=== PATIENT | male | born 1930 | race Caucasian/White ===

== ENCOUNTER 2017-05-28 18:28 | Inpatient (IN) | payer MEDICARE, BC ==
[~2017-05-28] VITALS: Ht 172.7 cm; Wt 83.5 kg
[~2017-05-28 18:28] MED LIST: AMIT10TA PO; AMLO10TA2 PO; ATEN50TA PO; CLON2TAB16 PO; DOXE10CA PO; IBUP1TAB12 PO; LORA1TAB PO; OMEP20CA9 PO; OXYC-328 PO; OXYC1TAB9 PO; SOMNAPURE; TAMS0.4C97 PO; TRAZ50TA15 PO; ZALE10CA44 PO
[2017-05-28] MEDS ORDERED: VANCOMYCIN PER PHARMACY MC PRN (19:15)
[2017-05-28] MEDS ORDERED: levOFLOXacin PER PHARMACY. MC PRN (19:15)
[2017-05-28] MEDS ORDERED: PIP/TAZO PER PHARMACY MC PRN (19:15)
[2017-05-28 19:21] LABS: BASO # 0.1 x10^3/uL (0.0-0.2); BASO % 1 % (0-3); EOS % 3 % (0-3); HEMATOCRIT 37.7 % (39.0-53.0); HEMOGLOBIN 12.9 g/dL (13.0-17.5); LYMPH % 12 % (24-48); MEAN CORPUSCULAR HEMOGLOBIN 33 pg (25-35); MEAN CORPUSCULAR HGB CONC 34 g/dL (31-37); MEAN CORPUSCULAR VOLUME 95 fL (79-100); MONO % 9 % (0-9); NEUT % 74 % (31-73); PLATELET COUNT 316 x10^3/uL (140-400); RED BLOOD COUNT 3.95 x10^6/uL (4.30-5.70); RED CELL DISTRIBUTION WIDTH 14.8 % (11.5-14.5); WHITE BLOOD COUNT 8.4 x10^3/uL (4.0-11.0)
[2017-05-28 19:37] LABS: ALBUMIN 3.3 g/dL (3.4-5.0); ALBUMIN/GLOBULIN RATIO 0.7 (1.0-1.7); CREATININE 2.1 mg/dL (0.7-1.3); MAGNESIUM 2.1 mg/dL (1.8-2.4); POTASSIUM 3.9 mmol/L (3.5-5.1); TOTAL BILIRUBIN 0.6 mg/dL (0.2-1.0); TOTAL PROTEIN 7.8 g/dL (6.4-8.2)
[2017-05-28 19:42] LABS: PROTHROMBIN TIME PATIENT 12.8 SEC (11.7-14.0)
[2017-05-28 19:53] LABS: CALCIUM 12.1 mg/dL (8.5-10.1)
--- NOTE | 2017-05-28 21:35 | PHYS DOC ---
Past Medical History Past Medical History: GERD, Hypertension, Renal Failure, Other Additional Past Medical Histor: chronic pain Past Surgical History: Appendectomy, Tonsillectomy, Other Additional Past Surgical Histo: back,finger Alcohol Use: None Drug Use: None Adult General Chief Complaint Chief Complaint: SHORTNESS OF BREATH HPI HPI Patient is a 87 year old male who presents with shortness of breath. The patient reports at least 1 week history of intermittent dyspnea which occurs randomly including while at rest. States it seems worse at night when he tries to lie flat, feels that he can't breathe at all. He reports chronic left lower extremity pain & possibly some mild swelling. Reports occasional dry cough. Denies fevers/chills, chest pain, nausea/vomiting, diaphoresis. He denies previous history of similar symptoms, denies CHF, COPD, CAD, cardiac stents. Recent admission here for acute appendicitis & acute renal failure. States his symptoms began shortly after surgery. He denies any abdominal pain at this time. PCP is Dr. Jessica. Review of Systems Review of Systems Constitutional: Denies fever or chills Eyes: Denies change in visual acuity HENT: Denies nasal congestion or sore throat Respiratory: Reports cough & shortness of breath Cardiovascular: Denies chest pain or edema GI: Denies abdominal pain, nausea, vomiting, bloody stools or diarrhea : Denies dysuria or hematuria Musculoskeletal: Denies back pain or joint pain Integument: Denies rash or skin lesions Neurologic: Denies headache, focal weakness or sensory changes Current Medications Current Medications Current Medications Medications (Trade) Dose Ordered Sig/Boom Start Time Stop Time Status Last Admin Dose Admin Levofloxacin/ Dextrose (Levaquin Per Pharmacy) 1 each PRN DAILY PRN 05/28/17 19:15 UNV Lorazepam (Ativan) 0.5 mg 1X ONCE 05/28/17 19:15 05/28/17 19:16 DC 05/28/17 19:21 0.5 MG Piperacillin Sod/ Tazobactam Sod (Zosyn Per Pharmacy) 1 each PRN DAILY PRN 05/28/17 19:15 UNV Vancomycin HCl (Vanco Per Pharmacy) 1 each PRN DAILY PRN 05/28/17 19:15 UNV Allergies Allergies Allergies Coded Allergies Type Severity Reaction Last Updated Verified lisinopril Allergy Intermediate 05/11/17 Yes simvastatin Allergy Intermediate 05/11/17 Yes tramadol Allergy Intermediate 05/11/17 Yes hydrochlorothiazide Adverse Reaction Intermediate 05/11/17 Yes zolpidem Adverse Reaction Intermediate 09/24/13 Yes Physical Exam Physical Exam Constitutional: Well developed, well nourished, no acute distress, non-toxic appearance. HENT: Normocephalic, atraumatic, bilateral external ears normal, oropharynx moist, nose normal. Eyes: conjunctiva normal, no discharge. Neck: supple, no stridor. Cardiovascular: RRR, no murmurs, no edema. Lungs & Thorax: LCTAB, no wheezing, no respiratory distress. Abdomen: soft, nontender, nondistended. ecchymosis to abdominal wall. Skin: Warm, dry, no erythema, no rash. Back: No tenderness. Extremities: No tenderness, no edema. left calf mild tenderness without obvious asymmetric swelling, no focal knee or ankle tenderness, distal pulses palpable. Neurologic: Alert and oriented X 3, no focal deficits noted. Psychologic: Affect normal, judgement normal, mood normal. Current Patient Data Vital Signs Vital Signs Date Time Temp Pulse Resp B/P (MAP) Pulse Ox O2 Delivery O2 Flow Rate FiO2 05/28/17 19:42 20 168/78 (108) 100 Nasal Cannula 0.5 05/28/17 19:35 64 05/28/17 18:37 98.5 98.5 Lab Values Laboratory Tests Test 05/28/17 18:40 White Blood Count 8.4 x10^3/uL (4.0-11.0) Red Blood Count 3.95 x10^6/uL (4.30-5.70) L Hemoglobin 12.9 g/dL (13.0-17.5) L Hematocrit 37.7 % (39.0-53.0) L Mean Corpuscular Volume 95 fL (79-100) Mean Corpuscular Hemoglobin 33 pg (25-35) Mean Corpuscular Hemoglobin Concent 34 g/dL (31-37) Red Cell Distribution Width 14.8 % (11.5-14.5) H Platelet Count 316 x10^3/uL (140-400) # Neutrophils (%) (Auto) 74 % (31-73) H Lymphocytes (%) (Auto) 12 % (24-48) L Monocytes (%) (Auto) 9 % (0-9) Eosinophils (%) (Auto) 3 % (0-3) Basophils (%) (Auto) 1 % (0-3) Neutrophils # (Auto) 6.2 x10^3uL (1.8-7.7) Lymphocytes # (Auto) 1.0 x10^3/uL (1.0-4.8) Monocytes # (Auto) 0.8 x10^3/uL (0.0-1.1) Eosinophils # (Auto) 0.3 x10^3/uL (0.0-0.7) Basophils # (Auto) 0.1 x10^3/uL (0.0-0.2) Prothrombin Time 12.8 SEC (11.7-14.0) Prothrombin Time INR 1.0 (0.8-1.1) PTT 28 SEC (24-38) Sodium Level 141 mmol/L (136-145) Potassium Level 3.9 mmol/L (3.5-5.1) Chloride Level 103 mmol/L (98-107) Carbon Dioxide Level 33 mmol/L (21-32) H Anion Gap 5 (6-14) L Blood Urea Nitrogen 25 mg/dL (8-26) Creatinine 2.1 mg/dL (0.7-1.3) H Estimated GFR (Cockcroft-Gault) 30.0 BUN/Creatinine Ratio 12 (6-20) Glucose Level 101 mg/dL (70-99) H Calcium Level 12.1 mg/dL (8.5-10.1) *H Magnesium Level 2.1 mg/dL (1.8-2.4) Total Bilirubin 0.6 mg/dL (0.2-1.0) Aspartate Amino Transferase (AST) 29 U/L (15-37) Alanine Aminotransferase (ALT) 24 U/L (16-63) Alkaline Phosphatase 90 U/L (46-116) Troponin I Quantitative < 0.017 ng/mL (0.000-0.055) GU-Rdo-G-Type Natriuretic Peptide 2300 pg/mL (0-449) H Total Protein 7.8 g/dL (6.4-8.2) Albumin 3.3 g/dL (3.4-5.0) L Albumin/Globulin Ratio 0.7 (1.0-1.7) L Laboratory Tests 05/28/17 18:40 Laboratory Tests 05/28/17 18:40 EKG EKG Interpreted by me: Normal sinus rhythm rate 68, intraventricular block, no acute ST elevation, no ectopy, no significant change from prior[] Radiology/Procedures Radiology/Procedures PROCEDURE: VENOUS LOWER EXTREMITY LEFT Left lower extremity venous Doppler: Reason for examination: Left leg pain and swelling. The left lower extremity venous system was evaluated from the common femoral vein distally to the calf veins with grayscale imaging, color-flow imaging and spectral analysis. There appears to be good vascular flow. No deep venous thrombosis is present. There is normal response to compression and augmentation. IMPRESSION: No deep venous thrombosis evident in the left lower extremity. Electronically signed by: Trudy Fritz MD (05/28/2017 11:18 PM) [facility] [place] DICTATED and SIGNED BY: TRUDY FRITZ MD DATE: 05/28/172315 CXR, portable: interpreted by me: no cardiomegaly, no infiltrate, no pneumothorax, no acute process.[] VQ pending at time of admission. Course & Med Decision Making Course & Med Decision Making Pertinent Labs and Imaging studies reviewed. (See chart for details) The patient presents with dyspnea with oxygen saturation in the 70s at triage desk. Oxygen saturation improved to 90s with oxygen 2 L by nasal cannula. Obtained labs, EKG, chest x-ray. Found to have normal chest x-ray, elevated BNP. Venous ultrasound of the left lower extremity negative for DVT, with hypoxia and recent surgery planned to obtain CT angiogram of the chest but this was prevented by low GFR. Ordered V/Q scan which is pending at time of admission. Patient noted to have hypercalcemia, acute on chronic kidney disease. Will give gentle IV fluid hydration as well as low dose lasix; states not previuosly diagnosed with CHF or taking diuretics chronically. Recommended admission to the hospital for further evaluation and treatment. The patient agreed with plan of care. Discussed with Dr. Baker who agrees to admit to inpatient status, consults to Dr. Puckett of cardiology & Dr. Smith of pulmonary. The patient is admitted in guarded condition. [] Dragon Disclaimer Dragon Disclaimer This electronic medical record was generated, in whole or in part, using a voice recognition dictation system. Departure Departure Impression: Primary Impression: Dyspnea Additional Impressions: Acute exacerbation of congestive heart failure Hypercalcemia Acute kidney injury superimposed on chronic kidney disease Disposition: 09 ADMITTED INPATIENT Admitting Physician: Cabrera Baker Condition: GUARDED Problem Qualifiers NILSA DANIELSON MD May 28, 2017 21:35
[2017-05-28] MEDS ORDERED: IV NORMAL SALINE 500ML BAG 500 ML IV ONE (21:45)
[2017-05-28] MEDS ORDERED: ONDANSETRON PF 4 MG/2 ML VIAL. IV PRN (21:45)
[2017-05-28] MEDS ORDERED: ACETAMINOPHEN 325 MG TABLET. PO PRN (21:45)
[2017-05-28] MEDS ORDERED: FUROSEMIDE 20 MG/2 ML VIAL. IVP ONE (22:00)
--- NOTE | 2017-05-28 23:22 | RAD ---
Left lower extremity venous Doppler: Reason for examination: Left leg pain and swelling. The left lower extremity venous system was evaluated from the common femoral vein distally to the calf veins with grayscale imaging, color-flow imaging and spectral analysis. There appears to be good vascular flow. No deep venous thrombosis is present. There is normal response to compression and augmentation. IMPRESSION: No deep venous thrombosis evident in the left lower extremity. Electronically signed by: Trudy Lorenz MD (05/28/2017 11:18 PM) [facility]
[2017-05-29] VITALS (10 sets, daily range): BP systolic 142–199; BP diastolic 64–103
[2017-05-29 04:37] LABS: BASO # 0.1 x10^3/uL (0.0-0.2); BASO % 1 % (0-3); EOS % 3 % (0-3); HEMATOCRIT 36.3 % (39.0-53.0); HEMOGLOBIN 12.9 g/dL (13.0-17.5); LYMPH # 0.8 x10^3/uL (1.0-4.8); LYMPH % 12 % (24-48); MEAN CORPUSCULAR HEMOGLOBIN 33 pg (25-35); MEAN CORPUSCULAR HGB CONC 36 g/dL (31-37); MEAN CORPUSCULAR VOLUME 93 fL (79-100); MONO % 9 % (0-9); NEUT % 76 % (31-73); PLATELET COUNT 294 x10^3/uL (140-400); RED BLOOD COUNT 3.91 x10^6/uL (4.30-5.70); RED CELL DISTRIBUTION WIDTH 14.6 % (11.5-14.5); WHITE BLOOD COUNT 7.1 x10^3/uL (4.0-11.0)
[2017-05-29 04:46] LABS: CALCIUM 11.7 mg/dL (8.5-10.1); CREATININE 1.9 mg/dL (0.7-1.3); GFR 33.6; POTASSIUM 3.9 mmol/L (3.5-5.1)
[2017-05-29] MEDS ORDERED: HYDROcodone/APAP 5/325MG 1 TAB TABLET PO PRN (06:45)
--- NOTE | 2017-05-29 06:57 | EKG ---
[facility] [address] [place] [address] Test Date: 2017-05-28 Test Time: 18:41:44 Pat Name: KARAN GUZMAN Department: Room: 104 1 Gender: M Costumed Character: : 1930 Requested By: NILSA DANIELSON Order Number: [id number] Reading MD: Pito Bray Measurements Intervals [place] Rate: 68 P: 36 LA: 198 QRS: -69 QRSD: 134 T: 7 QT: 402 QTc: 428 Interpretive Statements SINUS RHYTHM ABNORMAL LEFT AXIS DEVIATION RIGHT BUNDLE BRANCH BLOCK QRS(T) CONTOUR ABNORMALITY CONSISTENT WITH INFERIOR INFARCT AGE UNDETERMINED Electronically Signed On 06-20-2017 15:59:33 CDT by Pito Bray
--- NOTE | 2017-05-29 08:29 | RAD ---
Ventilation/perfusion lung scan, 05/29/2017: History: Shortness of breath, possible pulmonary emboli The ventilation study was performed utilizing 24 mCi of xenon-133. Activity in the lungs is mildly heterogeneous. There is mild patchy retention in the lungs on the washout phase Perfusion imaging was performed utilizing 6.6 mCi of technetium 99m MAA. A similar pattern of activity is present in the lungs. No significant unmatched or segmental perfusion defects are seen. IMPRESSION: No VQ findings to suggest pulmonary emboli.
--- NOTE | 2017-05-29 08:59 | RAD ---
Portable chest, 05/28/2017: History: Cough, shortness of breath Comparison is made to a study from 05/14/2017. The heart size and pulmonary vascularity are normal. There is calcific plaquing and tortuosity of the thoracic aorta. Right basilar opacities have cleared. No significant pulmonary consolidation is seen. There is minimal linear scarring or atelectasis in the left base. No significant pleural fluid is evident. IMPRESSION: 1. Right basilar infiltrates and pleural fluid have cleared. 2. No acute abnormality is detected.
[2017-05-29] MEDS ORDERED: ONDANSETRON PF 4 MG/2 ML VIAL. IV PRN (09:15)
[2017-05-29] MEDS ORDERED: ALBUTEROL SULFATE 2.5 MG/3 ML NEBU. NEB PRN (09:15)
[2017-05-29] MEDS ORDERED: LORazepam 1 MG TABLET PO PRN (09:15)
[2017-05-29] MEDS ORDERED: oxyCODONE/APAP 10/325 1 TAB TABLET PO PRN (09:15)
[2017-05-29] MEDS ORDERED: MIRT15TA3 PO (09:17)
[2017-05-29] MEDS ORDERED: ATENOLOL 50 MG TABLET. PO SCH (10:00)
[2017-05-29] MEDS: TAMSULOSIN 0.4 MG CAP.ER.24H. PO SCH (10:18)
[2017-05-29] MEDS: amLODIPine BESYLATE 10 MG TABLET PO SCH (10:18)
[2017-05-29] MEDS: PANTOPRAZOLE 40 MG TABLET.DR. PO SCH (10:18)
--- NOTE | 2017-05-29 10:48 | PDOC1 ---
History and Physical Date of Admission Date of Admission DATE: 05/29/17 TIME: 10:43 Identification/Chief Complaint Chief Complaint soa Problems: Source Source: Caregiver, Chart review, Patient History of Present Illness History of Present Illness 87 y.o male, son involved in care was recently here for lap appy by our GS team but transferred to [facility] bec had urinary retention issues post op/ needed urology service, SOunds like at [facility], morrison was placed and no other urologic intervention, dcd home with morrison., BUt came thru ER last night bec of SOA, leg edema, CHF findings on imaging and BNP elevated., and has had good UO after lasix at ER, NO hx CAD, COPD or CHF known to pt,. SOn not at bedside, BUt does have hx CKD? unknown creat, Creat better 1.9 from 2.1, but hypercalcemia persists, 10 from 11 NO known parathyroids issues at least known to pt. PCP Jaskaran Hilario Past Medical History Cardiovascular: HTN Pulmonary: No pertinent hx CENTRAL NERVOUS SYSTEM: Periperal neuropathy GI: GERD Heme/Onc: No pertinent hx Hepatobiliary: No pertinent hx Psych: No pertinent hx Musculoskeletal: low back pain, Osteoarthritis Infectious disease: No pertinent hx Renal/: Urinary Incontinence, Other Endocrine: No pertinent hx Past Surgical History Past Surgical History: Appendectomy, Cataract Removal, Tonsillectomy, Other Family History Family History: No Significant Social History Smoke: No ALCOHOL: rare Drugs: None Current Problem List Problem List Problems Medical Problems: (1) Acute exacerbation of congestive heart failure Status: Acute (2) Acute kidney injury superimposed on chronic kidney disease Status: Acute (3) Dyspnea Status: Acute (4) Hypercalcemia Status: Acute Problems: Current Medications Current Medications Current Medications Vancomycin HCl (Vanco Per Pharmacy) 1 each PRN DAILY PRN MC SEE COMMENTS; Start 05/28/17 at 19:15; Status UNV Piperacillin Sod/ Tazobactam Sod (Zosyn Per Pharmacy) 1 each PRN DAILY PRN MC SEE COMMENTS; Start 05/28/17 at 19:15; Status UNV Levofloxacin/ Dextrose (Levaquin Per Pharmacy) 1 each PRN DAILY PRN MC SEE COMMENTS; Start 05/28/17 at 19:15; Status UNV Lorazepam (Ativan) 0.5 mg 1X ONCE IV Last administered on 05/28/17t 19:21; Start 05/28/17 at 19:15; Stop 05/28/17 at 19:16; Status DC Ondansetron HCl (Zofran) 4 mg PRN Q8HRS PRN IV NAUSEA/VOMITING; Start 05/28/17 at 21:45; Stop 05/29/17 at 09:08; Status DC Acetaminophen (Tylenol) 650 mg PRN Q4HRS PRN PO FEVER; Start 05/28/17 at 21:45 ; Stop 05/29/17 at 21:44 Furosemide (Lasix) 20 mg 1X ONCE IVP Last administered on 05/28/17 22:00; Start 05/28/17 at 22:00; Stop 05/28/17 at 22:01; Status DC Sodium Chloride 500 ml @ 500 mls/hr 1X ONCE IV Last administered on 21:45; Start 05/28/17 at 21:45; Stop 05/28/17 at 22:44; Status DC Lorazepam (Ativan) 0.5 mg PRN Q4HRS PRN IV ANXIETY / AGITATION Last administered on 05/29/17 06:44; Start 05/29/17 at 06:45 Acetaminophen/ Hydrocodone Bitart (Lortab 5/325) 1 tab PRN Q6HRS PRN PO SEVERE PAIN Last administered on 05/29/17 06:44; Start 05/29/17 at 06:45 Ondansetron HCl (Zofran) 4 mg PRN Q6HRS PRN IV NAUSEA/VOMITING; Start 05/29/17 at 09:15; Stop 05/30/17 at 09:14 Albuterol Sulfate (Ventolin Neb Soln) 2.5 mg PRN Q4HRS PRN NEB SHORTNESS OF BREATH; Start 05/29/17 at 09:15 Amlodipine Besylate (Norvasc) 10 mg DAILY PO Last administered on 05/29/17 10: 18; Start 05/29/17 at 10:00 Atenolol (Tenormin) 50 mg DAILY PO Last administered on 05/29/17 10:17; Start 05/29/17 at 10:00 Doxepin HCl (SINequan) 10 mg QHS PO ; Start 05/29/17 at 21:00 Lorazepam (Ativan) 2 mg PRN QHS PRN PO INSOMNIA; Start 05/29/17 at 09:15 Oxycodone/ Acetaminophen (Percocet 10/325) 1 tab PRN Q4HRS PRN PO PAIN; Start 05/29/17 at 09:15 Tamsulosin HCl (Flomax) 0.4 mg DAILY PO Last administered on 05/29/17 10:18; Start 05/29/17 at 10:00 Pantoprazole Sodium (Protonix) 40 mg DAILYAC PO Last administered on 05/29/17 10:18; Start 05/29/17 at 11:30 Active Scripts Active Flomax (Tamsulosin Hcl) 0.4 Mg Cap.er.24h 0.4 Mg PO DAILY 30 Days Reported Mirtazapine 15 Mg Tablet 0.5 Tab PO QHS Amlodipine Besylate 10 Mg Tablet 10 Mg PO Lorazepam 1 Mg Tablet 2 Mg PO HS PRN Atenolol 50 Mg Tablet 50 Mg PO BID Allergies Allergies: Coded Allergies: lisinopril (Verified Allergy, Intermediate, 05/11/17) simvastatin (Verified Allergy, Intermediate, 05/11/17) WEAKNESS tramadol (Verified Allergy, Intermediate, 05/11/17) "DRIVE ME UP A WALK" hydrochlorothiazide (Verified Adverse Reaction, Intermediate, 05/11/17) "MADED ME HURT IN MY LEGS" zolpidem (Verified Adverse Reaction, Intermediate, 09/24/13) hEADACHE ROS Review of System denies currently 14 pt reviewed with him Physical Exam General: Alert, Oriented X3, Cooperative, No acute distress HEENT: Atraumatic, PERRLA Lungs: Normal air movement, Other (dec BS) Heart: S1S2, RRR, no thrills, no rubs, no gallops, no murmurs Cardiovascular: S1, S2 Abdomen: Normal bowel sounds, Soft, No tenderness, No hepatosplenomegaly, No masses Male Genitals Exam: normal genitalia, normal prostate Rectal Exam: not examined Extremities: No clubbing, No cyanosis, No edema, Normal pulses, No tenderness/ swelling Skin: No rashes, No breakdown, No significant lesion Neuro: Normal gait, Normal speech, Strength at 5/5 X4 ext, Normal tone, Sensation intact, Cranial nerves 3-12 NL, Reflexes 2+ Psych/Mental Status: Mental status NL, Mood NL Vitals Vitals Vital Signs Date Time Temp Pulse Resp B/P (MAP) Pulse Ox O2 Delivery O2 Flow Rate FiO2 05/29/17 10:18 67 155/80 05/29/17 07:30 16 96 Room Air 05/29/17 07:00 98.8 98.8 05/28/17 19:42 0.5 Labs Labs Laboratory Tests Test 05/28/17 18:40 05/29/17 03:34 05/29/17 09:35 White Blood Count 8.4 x10^3/uL (4.0-11.0) 7.1 x10^3/uL (4.0-11.0) Red Blood Count 3.95 x10^6/uL (4.30-5.70) 3.91 x10^6/uL (4.30-5.70) Hemoglobin 12.9 g/dL (13.0-17.5) 12.9 g/dL (13.0-17.5) Hematocrit 37.7 % (39.0-53.0) 36.3 % (39.0-53.0) Mean Corpuscular Volume 95 fL (79-100) 93 fL (79-100) Mean Corpuscular Hemoglobin 33 pg (25-35) 33 pg (25-35) Mean Corpuscular Hemoglobin Concent 34 g/dL (31-37) 36 g/dL (31-37) Red Cell Distribution Width 14.8 % (11.5-14.5) 14.6 % (11.5-14.5) Platelet Count 316 x10^3/uL (140-400) 294 x10^3/uL (140-400) Neutrophils (%) (Auto) 74 % (31-73) 76 % (31-73) Lymphocytes (%) (Auto) 12 % (24-48) 12 % (24-48) Monocytes (%) (Auto) 9 % (0-9) 9 % (0-9) Eosinophils (%) (Auto) 3 % (0-3) 3 % (0-3) Basophils (%) (Auto) 1 % (0-3) 1 % (0-3) Neutrophils # (Auto) 6.2 x10^3uL (1.8-7.7) 5.4 x10^3uL (1.8-7.7) Lymphocytes # (Auto) 1.0 x10^3/uL (1.0-4.8) 0.8 x10^3/uL (1.0-4.8) Monocytes # (Auto) 0.8 x10^3/uL (0.0-1.1) 0.6 x10^3/uL (0.0-1.1) Eosinophils # (Auto) 0.3 x10^3/uL (0.0-0.7) 0.2 x10^3/uL (0.0-0.7) Basophils # (Auto) 0.1 x10^3/uL (0.0-0.2) 0.1 x10^3/uL (0.0-0.2) Prothrombin Time 12.8 SEC (11.7-14.0) Prothromb Time International Ratio 1.0 (0.8-1.1) Activated Partial Thromboplast Time 28 SEC (24-38) Sodium Level 141 mmol/L (136-145) 143 mmol/L (136-145) Potassium Level 3.9 mmol/L (3.5-5.1) 3.9 mmol/L (3.5-5.1) Chloride Level 103 mmol/L (98-107) 105 mmol/L (98-107) Carbon Dioxide Level 33 mmol/L (21-32) 31 mmol/L (21-32) Anion Gap 5 (6-14) 7 (6-14) Blood Urea Nitrogen 25 mg/dL (8-26) 23 mg/dL (8-26) Creatinine 2.1 mg/dL (0.7-1.3) 1.9 mg/dL (0.7-1.3) Estimated GFR (Cockcroft-Gault) 30.0 33.6 BUN/Creatinine Ratio 12 (6-20) Glucose Level 101 mg/dL (70-99) 103 mg/dL (70-99) Calcium Level 12.1 mg/dL (8.5-10.1) 11.7 mg/dL (8.5-10.1) Magnesium Level 2.1 mg/dL (1.8-2.4) Total Bilirubin 0.6 mg/dL (0.2-1.0) Aspartate Amino Transf (AST/SGOT) 29 U/L (15-37) Alanine Aminotransferase (ALT/SGPT) 24 U/L (16-63) Alkaline Phosphatase 90 U/L (46-116) Troponin I Quantitative < 0.017 ng/mL (0.000-0.055) < 0.017 ng/mL (0.000-0.055) < 0.017 ng/mL (0.000-0.055) WZ-Lxs-F-Type Natriuretic Peptide 2300 pg/mL (0-449) Total Protein 7.8 g/dL (6.4-8.2) Albumin 3.3 g/dL (3.4-5.0) Albumin/Globulin Ratio 0.7 (1.0-1.7) Laboratory Tests Test 05/28/17 18:40 05/29/17 03:34 05/29/17 09:35 White Blood Count 8.4 x10^3/uL (4.0-11.0) 7.1 x10^3/uL (4.0-11.0) Red Blood Count 3.95 x10^6/uL (4.30-5.70) 3.91 x10^6/uL (4.30-5.70) Hemoglobin 12.9 g/dL (13.0-17.5) 12.9 g/dL (13.0-17.5) Hematocrit 37.7 % (39.0-53.0) 36.3 % (39.0-53.0) Mean Corpuscular Volume 95 fL (79-100) 93 fL (79-100) Mean Corpuscular Hemoglobin 33 pg (25-35) 33 pg (25-35) Mean Corpuscular Hemoglobin Concent 34 g/dL (31-37) 36 g/dL (31-37) Red Cell Distribution Width 14.8 % (11.5-14.5) 14.6 % (11.5-14.5) Platelet Count 316 x10^3/uL (140-400) 294 x10^3/uL (140-400) Neutrophils (%) (Auto) 74 % (31-73) 76 % (31-73) Lymphocytes (%) (Auto) 12 % (24-48) 12 % (24-48) Monocytes (%) (Auto) 9 % (0-9) 9 % (0-9) Eosinophils (%) (Auto) 3 % (0-3) 3 % (0-3) Basophils (%) (Auto) 1 % (0-3) 1 % (0-3) Neutrophils # (Auto) 6.2 x10^3uL (1.8-7.7) 5.4 x10^3uL (1.8-7.7) Lymphocytes # (Auto) 1.0 x10^3/uL (1.0-4.8) 0.8 x10^3/uL (1.0-4.8) Monocytes # (Auto) 0.8 x10^3/uL (0.0-1.1) 0.6 x10^3/uL (0.0-1.1) Eosinophils # (Auto) 0.3 x10^3/uL (0.0-0.7) 0.2 x10^3/uL (0.0-0.7) Basophils # (Auto) 0.1 x10^3/uL (0.0-0.2) 0.1 x10^3/uL (0.0-0.2) Prothrombin Time 12.8 SEC (11.7-14.0) Prothromb Time International Ratio 1.0 (0.8-1.1) Activated Partial Thromboplast Time 28 SEC (24-38) Sodium Level 141 mmol/L (136-145) 143 mmol/L (136-145) Potassium Level 3.9 mmol/L (3.5-5.1) 3.9 mmol/L (3.5-5.1) Chloride Level 103 mmol/L (98-107) 105 mmol/L (98-107) Carbon Dioxide Level 33 mmol/L (21-32) 31 mmol/L (21-32) Anion Gap 5 (6-14) 7 (6-14) Blood Urea Nitrogen 25 mg/dL (8-26) 23 mg/dL (8-26) Creatinine 2.1 mg/dL (0.7-1.3) 1.9 mg/dL (0.7-1.3) Estimated GFR (Cockcroft-Gault) 30.0 33.6 BUN/Creatinine Ratio 12 (6-20) Glucose Level 101 mg/dL (70-99) 103 mg/dL (70-99) Calcium Level 12.1 mg/dL (8.5-10.1) 11.7 mg/dL (8.5-10.1) Magnesium Level 2.1 mg/dL (1.8-2.4) Total Bilirubin 0.6 mg/dL (0.2-1.0) Aspartate Amino Transf (AST/SGOT) 29 U/L (15-37) Alanine Aminotransferase (ALT/SGPT) 24 U/L (16-63) Alkaline Phosphatase 90 U/L (46-116) Troponin I Quantitative < 0.017 ng/mL (0.000-0.055) < 0.017 ng/mL (0.000-0.055) < 0.017 ng/mL (0.000-0.055) MR-Oul-J-Type Natriuretic Peptide 2300 pg/mL (0-449) Total Protein 7.8 g/dL (6.4-8.2) Albumin 3.3 g/dL (3.4-5.0) Albumin/Globulin Ratio 0.7 (1.0-1.7) VTE Prophylaxis Ordered VTE Prophylaxis Devices: Yes VTE Pharmacological Prophylaxi: Yes Assessment/Plan Assessment/Plan 1. CHF unknown type, new onset 2. HYpercalcemia 3. ONELIA on CKD, prerenal? 4. REecnt lap appy - 2 weeks ago 5. Geriatric, high fall risk 6. ANemia likely of CKD PLAN: Add renal consult on top of cards CUrrently CVC status Check iPTH CAlciuj again kalyan PT/OT Fall risk Dw ICU Team GERMAN KNIGHT MD May 29, 2017 10:48
--- NOTE | 2017-05-29 11:25 | PDOC2 ---
CARDIAC CONSULT DATE OF CONSULT Date of Consult DATE: 05/29/17 TIME: 10:59 REASON FOR CONSULT Reason for Consult: CHF REFERRING PHYSICIAN Referring Physician: Rachel SOURCE Source: Chart review, Patient HISTORY OF PRESENT ILLNESS HISTORY OF PRESENT ILLNESS This is a pleasant 87 yo male admitted for complains of SOA. This has been intermittent and notable for PND and orthopnea. Presently he is laying flat and in no distress. It is unclear about details of his symptoms since he is a poor historian. No significant swellin to his extremities but he is mainly complaining of lower abdominal pain with intermittent episodes of watery diarrhea. He has been having nonproductive cough lately. He has had urinary retention/ONELIA which prompted recent transfer to [facility] after recent lap appe here. Denies any fever or chills, no CP, palpitations or dizziness. PAST MEDICAL HISTORY Cardiovascular: HTN CENTRAL NERVOUS SYSTEM: Periperal neuropathy GI: GERD, Other (colitis) Psych: Anxiety Musculoskeletal: Osteoarthritis ENT: Allergic Rhinitis Renal/: Chronic renal insuff, Benign prostatic enlarg., Other (urinary retention) PAST SURGICAL HISTORY Past Surgical History: Appendectomy FAMILY HISTORY Family History noncontributory SOCIAL HISTORY Smoke: Quit (50 yrs ago with 20 pk yr) ALCOHOL: none Drugs: None Lives: Alone CURRENT MEDICATIONS CURRENT MEDICATIONS Current Medications Medications (Trade) Dose Ordered Sig/Boom Route PRN Reason Start Time Stop Time Status Last Admin Dose Admin Lorazepam (Ativan) 0.5 mg 1X ONCE IV 05/28/17 19:15 05/28/17 19:16 DC 05/28/17 19:21 Furosemide (Lasix) 20 mg 1X ONCE IVP 05/28/17 22:00 05/28/17 22:01 DC 05/28/17 22:00 Sodium Chloride 500 ml @ 500 mls/hr 1X ONCE IV 05/28/17 21:45 05/28/17 22:44 DC 05/28/17 21:45 Lorazepam (Ativan) 0.5 mg PRN Q4HRS PRN IV ANXIETY / AGITATION 05/29/17 06:45 05/29/17 06:44 Acetaminophen/ Hydrocodone Bitart (Lortab 5/325) 1 tab PRN Q6HRS PRN PO SEVERE PAIN 05/29/17 06:45 05/29/17 06:44 Amlodipine Besylate (Norvasc) 10 mg DAILY PO 05/29/17 10:00 05/29/17 10:18 Atenolol (Tenormin) 50 mg DAILY PO 05/29/17 10:00 05/29/17 10:17 Tamsulosin HCl (Flomax) 0.4 mg DAILY PO 05/29/17 10:00 05/29/17 10:18 Pantoprazole Sodium (Protonix) 40 mg DAILYAC PO 05/29/17 11:30 05/29/17 10:18 ALLERGIES ALLERGIES: Coded Allergies: lisinopril (Verified Allergy, Intermediate, 05/11/17) simvastatin (Verified Allergy, Intermediate, 05/11/17) WEAKNESS tramadol (Verified Allergy, Intermediate, 05/11/17) "DRIVE ME UP A WALK" hydrochlorothiazide (Verified Adverse Reaction, Intermediate, 05/11/17) "MADED ME HURT IN MY LEGS" zolpidem (Verified Adverse Reaction, Intermediate, 09/24/13) hEADACHE ROS Review of System limited, poor historian PHYSICAL EXAM General: Alert, Oriented X3, Cooperative, No acute distress HEENT: Atraumatic, Mucous membr. moist/pink Lungs: Other (right basilar crackles) Heart: Regular rate (SR with RBBB), Normal S1, Normal S2, Other (3/6 systolic murmur to LLS border; S4) Abdomen: Soft, Other (diffuse lower abdominal tenderness with palpation) Extremities: No cyanosis, No edema Skin: No breakdown, No significant lesion Neuro: Normal speech, Sensation intact Psych/Mental Status: Mental status NL, Mood NL MUSCULOSKELETAL: Osteoarthritic changes both hands VITALS VITALS Vital Signs Date Time Temp Pulse Resp B/P (MAP) Pulse Ox O2 Delivery O2 Flow Rate FiO2 05/29/17 10:18 67 155/80 05/29/17 07:30 16 96 Room Air 05/29/17 07:00 98.8 98.8 05/28/17 19:42 0.5 LABS Lab: Laboratory Tests Test 05/28/17 18:40 05/29/17 03:34 05/29/17 09:35 White Blood Count 8.4 x10^3/uL (4.0-11.0) 7.1 x10^3/uL (4.0-11.0) Red Blood Count 3.95 x10^6/uL (4.30-5.70) 3.91 x10^6/uL (4.30-5.70) Hemoglobin 12.9 g/dL (13.0-17.5) 12.9 g/dL (13.0-17.5) Hematocrit 37.7 % (39.0-53.0) 36.3 % (39.0-53.0) Mean Corpuscular Volume 95 fL (79-100) 93 fL (79-100) Mean Corpuscular Hemoglobin 33 pg (25-35) 33 pg (25-35) Mean Corpuscular Hemoglobin Concent 34 g/dL (31-37) 36 g/dL (31-37) Red Cell Distribution Width 14.8 % (11.5-14.5) 14.6 % (11.5-14.5) Platelet Count 316 x10^3/uL (140-400) 294 x10^3/uL (140-400) Neutrophils (%) (Auto) 74 % (31-73) 76 % (31-73) Lymphocytes (%) (Auto) 12 % (24-48) 12 % (24-48) Monocytes (%) (Auto) 9 % (0-9) 9 % (0-9) Eosinophils (%) (Auto) 3 % (0-3) 3 % (0-3) Basophils (%) (Auto) 1 % (0-3) 1 % (0-3) Neutrophils # (Auto) 6.2 x10^3uL (1.8-7.7) 5.4 x10^3uL (1.8-7.7) Lymphocytes # (Auto) 1.0 x10^3/uL (1.0-4.8) 0.8 x10^3/uL (1.0-4.8) Monocytes # (Auto) 0.8 x10^3/uL (0.0-1.1) 0.6 x10^3/uL (0.0-1.1) Eosinophils # (Auto) 0.3 x10^3/uL (0.0-0.7) 0.2 x10^3/uL (0.0-0.7) Basophils # (Auto) 0.1 x10^3/uL (0.0-0.2) 0.1 x10^3/uL (0.0-0.2) Prothrombin Time 12.8 SEC (11.7-14.0) Prothromb Time International Ratio 1.0 (0.8-1.1) Activated Partial Thromboplast Time 28 SEC (24-38) Sodium Level 141 mmol/L (136-145) 143 mmol/L (136-145) Potassium Level 3.9 mmol/L (3.5-5.1) 3.9 mmol/L (3.5-5.1) Chloride Level 103 mmol/L (98-107) 105 mmol/L (98-107) Carbon Dioxide Level 33 mmol/L (21-32) 31 mmol/L (21-32) Anion Gap 5 (6-14) 7 (6-14) Blood Urea Nitrogen 25 mg/dL (8-26) 23 mg/dL (8-26) Creatinine 2.1 mg/dL (0.7-1.3) 1.9 mg/dL (0.7-1.3) Estimated GFR (Cockcroft-Gault) 30.0 33.6 BUN/Creatinine Ratio 12 (6-20) Glucose Level 101 mg/dL (70-99) 103 mg/dL (70-99) Calcium Level 12.1 mg/dL (8.5-10.1) 11.7 mg/dL (8.5-10.1) Magnesium Level 2.1 mg/dL (1.8-2.4) Total Bilirubin 0.6 mg/dL (0.2-1.0) Aspartate Amino Transf (AST/SGOT) 29 U/L (15-37) Alanine Aminotransferase (ALT/SGPT) 24 U/L (16-63) Alkaline Phosphatase 90 U/L (46-116) Troponin I Quantitative < 0.017 ng/mL (0.000-0.055) < 0.017 ng/mL (0.000-0.055) < 0.017 ng/mL (0.000-0.055) LH-Pxa-H-Type Natriuretic Peptide 2300 pg/mL (0-449) Total Protein 7.8 g/dL (6.4-8.2) Albumin 3.3 g/dL (3.4-5.0) Albumin/Globulin Ratio 0.7 (1.0-1.7) ECHOCARDIOGRAM ECHOCARDIOGRAM <Conclusion> Left ventricle systolic function is normal. The Ejection Fraction is 55-60%. There is normal LV segmental wall motion. Trace mitral regurgitation. Moderate tricuspid regurgitation. The PA pressure was estimated at 52 mmHg. There is no evidence of significant pericardial effusion. DATE: 05/14/17 0749 STRESS TEST STRESS TEST Conclusion 1. No evidence of significant ischemia or previous infarction appreciated. 2. Ejection fraction calcaulated to be 54% wtih normal wall motion on gated SPECT images. 3. Normal nuclear imaging scan. DATE: 09/24/13 0842 ASSESSMENT/PLAN ASSESSMENT/PLAN 1. Mild acute diastolic CHF: now compensated, likely due to pulmonary issue. Appears compensated. 2. Atypical pneumonia? Interstitial lung disease vs undiagnosed COPD: Pulmonary has been consulted. 3. Moderate pulmonary HTN with moderate TR: PAP 52 4. Chronic RBBB: SR no acute changes. 5. Hypercalcemia: nephrology consulted. 6. ONELIA on CKD: known for recent urinary retention. Cr better. 7. Past tobaccoism 8. HTN: Controlled Recommendations 1. Pt has received lasix, defer further diuretic therapy to nephrology 2. TTE with normal wall motion and EF. Troponin series normal. Tolerated recent surgery. No further cardiac testing at this time 3. Follow pulmonary and nephrology recommendations 4. Continue ome BP regimen. Problems: YUMIKO JOINER APRN May 29, 2017 11:24
--- NOTE | 2017-05-29 12:02 | PDOC2 ---
CONSULT Date of Consult Date of Consult DATE: 05/29/17 TIME: 11:56 Reason for Consult Reason for Consult: RENAL INSUFFICIENCY AND HIGH CALCIUM Referring Physician Referring Physician: TEAGAN Identification/Chief Complaint Chief Complaint SOB Problems: Source Source: Chart review, Patient History of Present Illness Reason for Visit: THIS IS AN 87 YR OLD HERE WITH SOB. DX WITH CHF. CR IS 1.9-2.1 RANGE WHILE HERE. OLD RECORDS SHOW A CR OF 1.5-2.0 AT BASELINE C/W STAGE 3 CKD. HX ALSO NOTABLE FOR BPH AND HE IS ON FLOMAX FOR THIS. HEMODYNAMICALLY STABLE Past Medical History Cardiovascular: HTN Pulmonary: No pertinent hx CENTRAL NERVOUS SYSTEM: Periperal neuropathy GI: GERD, Other Heme/Onc: No pertinent hx Hepatobiliary: No pertinent hx Psych: Anxiety Musculoskeletal: Osteoarthritis Infectious disease: No pertinent hx ENT: Allergic Rhinitis Renal/: Chronic renal insuff, Benign prostatic enlarg., Other Endocrine: No pertinent hx Past Surgical History Past Surgical History: Appendectomy Family History Family History: No Significant Social History Quit ALCOHOL: none Drugs: None Lives: Alone Current Problem List Problem List Problems Medical Problems: (1) Acute exacerbation of congestive heart failure Status: Acute (2) Acute kidney injury superimposed on chronic kidney disease Status: Acute (3) Dyspnea Status: Acute (4) Hypercalcemia Status: Acute Current Medications Current Medications Current Medications Vancomycin HCl (Vanco Per Pharmacy) 1 each PRN DAILY PRN MC SEE COMMENTS; Start 05/28/17 at 19:15; Status UNV Piperacillin Sod/ Tazobactam Sod (Zosyn Per Pharmacy) 1 each PRN DAILY PRN MC SEE COMMENTS; Start 05/28/17 at 19:15; Status UNV Levofloxacin/ Dextrose (Levaquin Per Pharmacy) 1 each PRN DAILY PRN MC SEE COMMENTS; Start 05/28/17 at 19:15; Status UNV Lorazepam (Ativan) 0.5 mg 1X ONCE IV Last administered on 05/28/17t 19:21; Start 05/28/17 at 19:15; Stop 05/28/17 at 19:16; Status DC Ondansetron HCl (Zofran) 4 mg PRN Q8HRS PRN IV NAUSEA/VOMITING; Start 05/28/17 at 21:45; Stop 05/29/17 at 09:08; Status DC Acetaminophen (Tylenol) 650 mg PRN Q4HRS PRN PO FEVER; Start 05/28/17 at 21:45 ; Stop 05/29/17 at 21:44 Furosemide (Lasix) 20 mg 1X ONCE IVP Last administered on 05/28/17 22:00; Start 05/28/17 at 22:00; Stop 05/28/17 at 22:01; Status DC Sodium Chloride 500 ml @ 500 mls/hr 1X ONCE IV Last administered on 21:45; Start 05/28/17 at 21:45; Stop 05/28/17 at 22:44; Status DC Lorazepam (Ativan) 0.5 mg PRN Q4HRS PRN IV ANXIETY / AGITATION Last administered on 05/29/17 06:44; Start 05/29/17 at 06:45 Acetaminophen/ Hydrocodone Bitart (Lortab 5/325) 1 tab PRN Q6HRS PRN PO SEVERE PAIN Last administered on 05/29/17 06:44; Start 05/29/17 at 06:45 Ondansetron HCl (Zofran) 4 mg PRN Q6HRS PRN IV NAUSEA/VOMITING; Start 05/29/17 at 09:15; Stop 05/30/17 at 09:14 Albuterol Sulfate (Ventolin Neb Soln) 2.5 mg PRN Q4HRS PRN NEB SHORTNESS OF BREATH; Start 05/29/17 at 09:15 Amlodipine Besylate (Norvasc) 10 mg DAILY PO Last administered on 05/29/17 10: 18; Start 05/29/17 at 10:00 Atenolol (Tenormin) 50 mg DAILY PO Last administered on 05/29/17 10:17; Start 05/29/17 at 10:00 Doxepin HCl (SINequan) 10 mg QHS PO ; Start 05/29/17 at 21:00 Lorazepam (Ativan) 2 mg PRN QHS PRN PO INSOMNIA; Start 05/29/17 at 09:15 Oxycodone/ Acetaminophen (Percocet 10/325) 1 tab PRN Q4HRS PRN PO PAIN; Start 05/29/17 at 09:15 Tamsulosin HCl (Flomax) 0.4 mg DAILY PO Last administered on 05/29/17 10:18; Start 05/29/17 at 10:00 Pantoprazole Sodium (Protonix) 40 mg DAILYAC PO Last administered on 05/29/17t 10:18; Start 05/29/17 at 11:30 Active Scripts Active Flomax (Tamsulosin Hcl) 0.4 Mg Cap.er.24h 0.4 Mg PO DAILY 30 Days Reported Mirtazapine 15 Mg Tablet 0.5 Tab PO QHS Amlodipine Besylate 10 Mg Tablet 10 Mg PO Lorazepam 1 Mg Tablet 2 Mg PO HS PRN Atenolol 50 Mg Tablet 50 Mg PO BID Allergies Allergies: Coded Allergies: lisinopril (Verified Allergy, Intermediate, 05/11/17) simvastatin (Verified Allergy, Intermediate, 05/11/17) WEAKNESS tramadol (Verified Allergy, Intermediate, 05/11/17) "DRIVE ME UP A WALK" hydrochlorothiazide (Verified Adverse Reaction, Intermediate, 05/11/17) "MADED ME HURT IN MY LEGS" zolpidem (Verified Adverse Reaction, Intermediate, 09/24/13) hEADACHE ROS General: YES: Fatigue, Appetite PSYCHOLOGICAL ROS: YES: Anxiety Eyes: Yes Decreased vision HEENT: YES: [place] Respiratory: YES: Cough, Shortness of breath Gastrointestinal: Yes Constipation Genitourinary: YES Other (ANURIA) Musculoskeletal: Yes Muscular Weakness Neurological: Yes Weakness Skin: Yes Dry Skin Physical Exam General: Alert, Oriented X3, Cooperative, No acute distress HEENT: Atraumatic Lungs: Other (DECREASE AT BASES) Heart: Regular rate Abdomen: Normal bowel sounds, No tenderness Extremities: No clubbing Skin: No rashes Neuro: Normal speech, Cranial nerves 3-12 NL Psych/Mental Status: Mental status NL, Mood NL MUSCULOSKELETAL: No deformity, No swelling Vitals VITALS Vital Signs Date Time Temp Pulse Resp B/P (MAP) Pulse Ox O2 Delivery O2 Flow Rate FiO2 05/29/17 11:00 98.3 72 18 147/65 (92) 100 Room Air 98.3 05/28/17 19:42 0.5 Labs Labs Laboratory Tests Test 05/28/17 18:40 05/29/17 03:34 05/29/17 09:35 White Blood Count 8.4 x10^3/uL (4.0-11.0) 7.1 x10^3/uL (4.0-11.0) Red Blood Count 3.95 x10^6/uL (4.30-5.70) 3.91 x10^6/uL (4.30-5.70) Hemoglobin 12.9 g/dL (13.0-17.5) 12.9 g/dL (13.0-17.5) Hematocrit 37.7 % (39.0-53.0) 36.3 % (39.0-53.0) Mean Corpuscular Volume 95 fL (79-100) 93 fL (79-100) Mean Corpuscular Hemoglobin 33 pg (25-35) 33 pg (25-35) Mean Corpuscular Hemoglobin Concent 34 g/dL (31-37) 36 g/dL (31-37) Red Cell Distribution Width 14.8 % (11.5-14.5) 14.6 % (11.5-14.5) Platelet Count 316 x10^3/uL (140-400) 294 x10^3/uL (140-400) Neutrophils (%) (Auto) 74 % (31-73) 76 % (31-73) Lymphocytes (%) (Auto) 12 % (24-48) 12 % (24-48) Monocytes (%) (Auto) 9 % (0-9) 9 % (0-9) Eosinophils (%) (Auto) 3 % (0-3) 3 % (0-3) Basophils (%) (Auto) 1 % (0-3) 1 % (0-3) Neutrophils # (Auto) 6.2 x10^3uL (1.8-7.7) 5.4 x10^3uL (1.8-7.7) Lymphocytes # (Auto) 1.0 x10^3/uL (1.0-4.8) 0.8 x10^3/uL (1.0-4.8) Monocytes # (Auto) 0.8 x10^3/uL (0.0-1.1) 0.6 x10^3/uL (0.0-1.1) Eosinophils # (Auto) 0.3 x10^3/uL (0.0-0.7) 0.2 x10^3/uL (0.0-0.7) Basophils # (Auto) 0.1 x10^3/uL (0.0-0.2) 0.1 x10^3/uL (0.0-0.2) Prothrombin Time 12.8 SEC (11.7-14.0) Prothromb Time International Ratio 1.0 (0.8-1.1) Activated Partial Thromboplast Time 28 SEC (24-38) Sodium Level 141 mmol/L (136-145) 143 mmol/L (136-145) Potassium Level 3.9 mmol/L (3.5-5.1) 3.9 mmol/L (3.5-5.1) Chloride Level 103 mmol/L (98-107) 105 mmol/L (98-107) Carbon Dioxide Level 33 mmol/L (21-32) 31 mmol/L (21-32) Anion Gap 5 (6-14) 7 (6-14) Blood Urea Nitrogen 25 mg/dL (8-26) 23 mg/dL (8-26) Creatinine 2.1 mg/dL (0.7-1.3) 1.9 mg/dL (0.7-1.3) Estimated GFR (Cockcroft-Gault) 30.0 33.6 BUN/Creatinine Ratio 12 (6-20) Glucose Level 101 mg/dL (70-99) 103 mg/dL (70-99) Calcium Level 12.1 mg/dL (8.5-10.1) 11.7 mg/dL (8.5-10.1) Magnesium Level 2.1 mg/dL (1.8-2.4) Total Bilirubin 0.6 mg/dL (0.2-1.0) Aspartate Amino Transf (AST/SGOT) 29 U/L (15-37) Alanine Aminotransferase (ALT/SGPT) 24 U/L (16-63) Alkaline Phosphatase 90 U/L (46-116) Troponin I Quantitative < 0.017 ng/mL (0.000-0.055) < 0.017 ng/mL (0.000-0.055) < 0.017 ng/mL (0.000-0.055) HD-Ery-I-Type Natriuretic Peptide 2300 pg/mL (0-449) Total Protein 7.8 g/dL (6.4-8.2) Albumin 3.3 g/dL (3.4-5.0) Albumin/Globulin Ratio 0.7 (1.0-1.7) Laboratory Tests Test 05/28/17 18:40 05/29/17 03:34 05/29/17 09:35 White Blood Count 8.4 x10^3/uL (4.0-11.0) 7.1 x10^3/uL (4.0-11.0) Red Blood Count 3.95 x10^6/uL (4.30-5.70) 3.91 x10^6/uL (4.30-5.70) Hemoglobin 12.9 g/dL (13.0-17.5) 12.9 g/dL (13.0-17.5) Hematocrit 37.7 % (39.0-53.0) 36.3 % (39.0-53.0) Mean Corpuscular Volume 95 fL (79-100) 93 fL (79-100) Mean Corpuscular Hemoglobin 33 pg (25-35) 33 pg (25-35) Mean Corpuscular Hemoglobin Concent 34 g/dL (31-37) 36 g/dL (31-37) Red Cell Distribution Width 14.8 % (11.5-14.5) 14.6 % (11.5-14.5) Platelet Count 316 x10^3/uL (140-400) 294 x10^3/uL (140-400) Neutrophils (%) (Auto) 74 % (31-73) 76 % (31-73) Lymphocytes (%) (Auto) 12 % (24-48) 12 % (24-48) Monocytes (%) (Auto) 9 % (0-9) 9 % (0-9) Eosinophils (%) (Auto) 3 % (0-3) 3 % (0-3) Basophils (%) (Auto) 1 % (0-3) 1 % (0-3) Neutrophils # (Auto) 6.2 x10^3uL (1.8-7.7) 5.4 x10^3uL (1.8-7.7) Lymphocytes # (Auto) 1.0 x10^3/uL (1.0-4.8) 0.8 x10^3/uL (1.0-4.8) Monocytes # (Auto) 0.8 x10^3/uL (0.0-1.1) 0.6 x10^3/uL (0.0-1.1) Eosinophils # (Auto) 0.3 x10^3/uL (0.0-0.7) 0.2 x10^3/uL (0.0-0.7) Basophils # (Auto) 0.1 x10^3/uL (0.0-0.2) 0.1 x10^3/uL (0.0-0.2) Prothrombin Time 12.8 SEC (11.7-14.0) Prothromb Time International Ratio 1.0 (0.8-1.1) Activated Partial Thromboplast Time 28 SEC (24-38) Sodium Level 141 mmol/L (136-145) 143 mmol/L (136-145) Potassium Level 3.9 mmol/L (3.5-5.1) 3.9 mmol/L (3.5-5.1) Chloride Level 103 mmol/L (98-107) 105 mmol/L (98-107) Carbon Dioxide Level 33 mmol/L (21-32) 31 mmol/L (21-32) Anion Gap 5 (6-14) 7 (6-14) Blood Urea Nitrogen 25 mg/dL (8-26) 23 mg/dL (8-26) Creatinine 2.1 mg/dL (0.7-1.3) 1.9 mg/dL (0.7-1.3) Estimated GFR (Cockcroft-Gault) 30.0 33.6 BUN/Creatinine Ratio 12 (6-20) Glucose Level 101 mg/dL (70-99) 103 mg/dL (70-99) Calcium Level 12.1 mg/dL (8.5-10.1) 11.7 mg/dL (8.5-10.1) Magnesium Level 2.1 mg/dL (1.8-2.4) Total Bilirubin 0.6 mg/dL (0.2-1.0) Aspartate Amino Transf (AST/SGOT) 29 U/L (15-37) Alanine Aminotransferase (ALT/SGPT) 24 U/L (16-63) Alkaline Phosphatase 90 U/L (46-116) Troponin I Quantitative < 0.017 ng/mL (0.000-0.055) < 0.017 ng/mL (0.000-0.055) < 0.017 ng/mL (0.000-0.055) VF-Ulp-J-Type Natriuretic Peptide 2300 pg/mL (0-449) Total Protein 7.8 g/dL (6.4-8.2) Albumin 3.3 g/dL (3.4-5.0) Albumin/Globulin Ratio 0.7 (1.0-1.7) Assessment/Plan Assessment/Plan IMP CHF-DIASTOLIC - COMPENSATED PULM HTN CKD STAGE 3 WITH CR OF 1.5-2.0 AT BASELINE-CR STABLE CURRENTLY BPH HX - ON FLOMAX HYPERCALCEMIA-MOST LIKELY EXOGENOUS PLAN EXPECT CA TO IMPROVE ON ITS OWN HAVE ASKED PT TO AVOID CA SUPPLEMENTS LABS IN AM CARDIOLOGY EVAL AND TX ZACK BOLAND MD May 29, 2017 12:02
--- NOTE | 2017-05-29 15:45 | PDOC ---
PULMONARY PROGRESS NOTES Vitals Vital Signs Date Time Temp Pulse Resp B/P (MAP) Pulse Ox O2 Delivery O2 Flow Rate FiO2 05/29/17 15:00 98.5 72 18 169/79 (109) 100 Room Air 98.5 05/28/17 19:42 0.5 Lungs: Crackles Cardiovascular: S1, S2 Labs Laboratory Tests Test 05/28/17 18:40 05/29/17 03:34 05/29/17 09:35 White Blood Count 8.4 x10^3/uL (4.0-11.0) 7.1 x10^3/uL (4.0-11.0) Red Blood Count 3.95 x10^6/uL (4.30-5.70) 3.91 x10^6/uL (4.30-5.70) Hemoglobin 12.9 g/dL (13.0-17.5) 12.9 g/dL (13.0-17.5) Hematocrit 37.7 % (39.0-53.0) 36.3 % (39.0-53.0) Mean Corpuscular Volume 95 fL (79-100) 93 fL (79-100) Mean Corpuscular Hemoglobin 33 pg (25-35) 33 pg (25-35) Mean Corpuscular Hemoglobin Concent 34 g/dL (31-37) 36 g/dL (31-37) Red Cell Distribution Width 14.8 % (11.5-14.5) 14.6 % (11.5-14.5) Platelet Count 316 x10^3/uL (140-400) 294 x10^3/uL (140-400) Neutrophils (%) (Auto) 74 % (31-73) 76 % (31-73) Lymphocytes (%) (Auto) 12 % (24-48) 12 % (24-48) Monocytes (%) (Auto) 9 % (0-9) 9 % (0-9) Eosinophils (%) (Auto) 3 % (0-3) 3 % (0-3) Basophils (%) (Auto) 1 % (0-3) 1 % (0-3) Neutrophils # (Auto) 6.2 x10^3uL (1.8-7.7) 5.4 x10^3uL (1.8-7.7) Lymphocytes # (Auto) 1.0 x10^3/uL (1.0-4.8) 0.8 x10^3/uL (1.0-4.8) Monocytes # (Auto) 0.8 x10^3/uL (0.0-1.1) 0.6 x10^3/uL (0.0-1.1) Eosinophils # (Auto) 0.3 x10^3/uL (0.0-0.7) 0.2 x10^3/uL (0.0-0.7) Basophils # (Auto) 0.1 x10^3/uL (0.0-0.2) 0.1 x10^3/uL (0.0-0.2) Prothrombin Time 12.8 SEC (11.7-14.0) Prothromb Time International Ratio 1.0 (0.8-1.1) Activated Partial Thromboplast Time 28 SEC (24-38) Sodium Level 141 mmol/L (136-145) 143 mmol/L (136-145) Potassium Level 3.9 mmol/L (3.5-5.1) 3.9 mmol/L (3.5-5.1) Chloride Level 103 mmol/L (98-107) 105 mmol/L (98-107) Carbon Dioxide Level 33 mmol/L (21-32) 31 mmol/L (21-32) Anion Gap 5 (6-14) 7 (6-14) Blood Urea Nitrogen 25 mg/dL (8-26) 23 mg/dL (8-26) Creatinine 2.1 mg/dL (0.7-1.3) 1.9 mg/dL (0.7-1.3) Estimated GFR (Cockcroft-Gault) 30.0 33.6 BUN/Creatinine Ratio 12 (6-20) Glucose Level 101 mg/dL (70-99) 103 mg/dL (70-99) Calcium Level 12.1 mg/dL (8.5-10.1) 11.7 mg/dL (8.5-10.1) Magnesium Level 2.1 mg/dL (1.8-2.4) Total Bilirubin 0.6 mg/dL (0.2-1.0) Aspartate Amino Transf (AST/SGOT) 29 U/L (15-37) Alanine Aminotransferase (ALT/SGPT) 24 U/L (16-63) Alkaline Phosphatase 90 U/L (46-116) Troponin I Quantitative < 0.017 ng/mL (0.000-0.055) < 0.017 ng/mL (0.000-0.055) < 0.017 ng/mL (0.000-0.055) UO-Mcl-A-Type Natriuretic Peptide 2300 pg/mL (0-449) Total Protein 7.8 g/dL (6.4-8.2) Albumin 3.3 g/dL (3.4-5.0) Albumin/Globulin Ratio 0.7 (1.0-1.7) Laboratory Tests Test 05/28/17 18:40 05/29/17 03:34 05/29/17 09:35 White Blood Count 8.4 x10^3/uL (4.0-11.0) 7.1 x10^3/uL (4.0-11.0) Red Blood Count 3.95 x10^6/uL (4.30-5.70) 3.91 x10^6/uL (4.30-5.70) Hemoglobin 12.9 g/dL (13.0-17.5) 12.9 g/dL (13.0-17.5) Hematocrit 37.7 % (39.0-53.0) 36.3 % (39.0-53.0) Mean Corpuscular Volume 95 fL (79-100) 93 fL (79-100) Mean Corpuscular Hemoglobin 33 pg (25-35) 33 pg (25-35) Mean Corpuscular Hemoglobin Concent 34 g/dL (31-37) 36 g/dL (31-37) Red Cell Distribution Width 14.8 % (11.5-14.5) 14.6 % (11.5-14.5) Platelet Count 316 x10^3/uL (140-400) 294 x10^3/uL (140-400) Neutrophils (%) (Auto) 74 % (31-73) 76 % (31-73) Lymphocytes (%) (Auto) 12 % (24-48) 12 % (24-48) Monocytes (%) (Auto) 9 % (0-9) 9 % (0-9) Eosinophils (%) (Auto) 3 % (0-3) 3 % (0-3) Basophils (%) (Auto) 1 % (0-3) 1 % (0-3) Neutrophils # (Auto) 6.2 x10^3uL (1.8-7.7) 5.4 x10^3uL (1.8-7.7) Lymphocytes # (Auto) 1.0 x10^3/uL (1.0-4.8) 0.8 x10^3/uL (1.0-4.8) Monocytes # (Auto) 0.8 x10^3/uL (0.0-1.1) 0.6 x10^3/uL (0.0-1.1) Eosinophils # (Auto) 0.3 x10^3/uL (0.0-0.7) 0.2 x10^3/uL (0.0-0.7) Basophils # (Auto) 0.1 x10^3/uL (0.0-0.2) 0.1 x10^3/uL (0.0-0.2) Prothrombin Time 12.8 SEC (11.7-14.0) Prothromb Time International Ratio 1.0 (0.8-1.1) Activated Partial Thromboplast Time 28 SEC (24-38) Sodium Level 141 mmol/L (136-145) 143 mmol/L (136-145) Potassium Level 3.9 mmol/L (3.5-5.1) 3.9 mmol/L (3.5-5.1) Chloride Level 103 mmol/L (98-107) 105 mmol/L (98-107) Carbon Dioxide Level 33 mmol/L (21-32) 31 mmol/L (21-32) Anion Gap 5 (6-14) 7 (6-14) Blood Urea Nitrogen 25 mg/dL (8-26) 23 mg/dL (8-26) Creatinine 2.1 mg/dL (0.7-1.3) 1.9 mg/dL (0.7-1.3) Estimated GFR (Cockcroft-Gault) 30.0 33.6 BUN/Creatinine Ratio 12 (6-20) Glucose Level 101 mg/dL (70-99) 103 mg/dL (70-99) Calcium Level 12.1 mg/dL (8.5-10.1) 11.7 mg/dL (8.5-10.1) Magnesium Level 2.1 mg/dL (1.8-2.4) Total Bilirubin 0.6 mg/dL (0.2-1.0) Aspartate Amino Transf (AST/SGOT) 29 U/L (15-37) Alanine Aminotransferase (ALT/SGPT) 24 U/L (16-63) Alkaline Phosphatase 90 U/L (46-116) Troponin I Quantitative < 0.017 ng/mL (0.000-0.055) < 0.017 ng/mL (0.000-0.055) < 0.017 ng/mL (0.000-0.055) LT-Sba-X-Type Natriuretic Peptide 2300 pg/mL (0-449) Total Protein 7.8 g/dL (6.4-8.2) Albumin 3.3 g/dL (3.4-5.0) Albumin/Globulin Ratio 0.7 (1.0-1.7) Medications Active Scripts Medications Dose Route/Sig Max Daily Dose Days Date Category Mirtazapine 15 Mg Tablet 0.5 Tab PO QHS 05/29/17 Reported Flomax (Tamsulosin Hcl) 0.4 Mg Cap.er.24h 0.4 Mg PO DAILY 30 05/14/17 Rx Amlodipine Besylate 10 Mg Tablet 10 Mg PO 05/11/17 Reported Lorazepam 1 Mg Tablet 2 Mg PO HS PRN 05/11/17 Reported Atenolol 50 Mg Tablet 50 Mg PO BID 05/11/17 Reported Impression . FULL CONSULT DICTATED NO PE SEE ORDERS SUSPECT POSSIBLE ASPIRATION THANKS DEE FOY MD May 29, 2017 15:45
--- NOTE | 2017-05-29 16:23 | CONS ---
DATE OF CONSULTATION: 05/29/2017 DATE OF SERVICE: 05/29/2017 ATTENDING PHYSICIAN: Dr. Watkins. REASON FOR CONSULTATION: The patient seen in pulmonary consultation at the request of Dr. Watkins for increasing shortness of breath. HISTORY OF PRESENT ILLNESS: The patient is an 87-year-old male who is somewhat of a poor historian, presented to the Emergency Room with increasing shortness of breath over the last week. At times this happens while at rest. He has significant reflux and chest discomfort. He also has recurrent hiccups. He states his food gets caught. He feels like when he lies down, he is unable to breathe. He also has some chronic left lower extremity edema. The patient denies fever, chills, no productive cough. Denies any vomiting. He underwent workup. I reviewed his V/Q scan. There is no significant unmatched perfusion defects. He also had lower extremity venous Dopplers, which were negative for DVT. PAST MEDICAL HISTORY: Remarkable for recent appendectomy. He has a history gastroesophageal reflux, hypertension, renal failure, chronic pain. PAST SURGICAL HISTORY: Status post appendectomy, tonsillectomy. REVIEW OF SYSTEMS: As indicated above, otherwise, a 10-point system was reviewed and negative. ALLERGIES: HYDROCHLOROTHIAZIDE, LISINOPRIL, SIMVASTATIN, TRAMADOL, and ZOLPIDEM. CURRENT MEDICATIONS: List was reviewed. SOCIAL HISTORY: He quit tobacco 50 years ago. Denies any excessive alcohol intake. FAMILY HISTORY: Noncontributory in this age group. PHYSICAL EXAMINATION: GENERAL: The patient was currently in the intensive care unit on no oxygen flow with saturation 96%-100%. VITAL SIGNS: Blood pressure has been elevated at times. HEENT: Eyes, the sclerae were nonicteric. NECK: Jugular venous distention was not elevated. No lymphadenopathy. CHEST: Full expansion. LUNGS: Adequate airway flow with no wheezes. CARDIOVASCULAR: Regular rate and rhythm with S1, S2, no S3. ABDOMEN: Soft, nontender, nondistended. EXTREMITIES: No clubbing, cyanosis. Minimal edema. NEUROLOGIC: The patient was awake, alert, following commands. A detailed neuro exam was not performed. LABORATORY DATA: Reviewed. Electrolytes were noted. BUN was normal. Creatinine was elevated. Troponin was normal. BNP was elevated. Albumin upon admission was low, calcium was elevated. IMPRESSION: 1. Progressive dyspnea, suspect combination of deconditioning and mild underlying chronic obstructive pulmonary disease. 2. Dysphagia. 3. Hypercalcemia. 4. Acute kidney injury on top of chronic kidney injury with chronic kidney disease. 5. Acute congestive heart failure. 6. Chronic anemia. PLAN: 1. The patient ruled out for PE and DVT with V/Q scan and venous Dopplers, my clinical suspicion for PE was quite low. 2. Suspect some of his symptoms are related to chronic reflux, possible mild clinical aspiration. 3. Hypercalcemia and renal failure, being worked up per Nephrology. 4. Follow cardiology input. 5. PT and OT evaluation. I do appreciate the privilege in sharing in the patient's care. DEE FOY MD DR: CONSTANTINE/cassandra JOB#: [id number] / [id number]
[2017-05-29] MEDS: ATENOLOL 50 MG TABLET. PO SCH (20:24)
[2017-05-29] MEDS ORDERED: DOXEPIN HCL 10 MG CAPSULE. PO SCH (21:00)
[2017-05-29] MEDS ORDERED: MIRTAZAPINE 15 MG TABLET PO SCH (21:00)
[2017-05-30 06:26] LABS: CALCIUM 10.8 mg/dL (8.5-10.1); CREATININE 2.4 mg/dL (0.7-1.3); GFR 25.7; POTASSIUM 3.7 mmol/L (3.5-5.1)
[2017-05-30 08:00] VITALS: BP 159/77
[2017-05-30] MEDS ORDERED: BARIUM SULFATE 60% 355 ML SUSP PO ONE (08:15)
[2017-05-30] MEDS ORDERED: SIMETHICONE/SOD BICARB/CITRIC ACID PACKET. PO ONE (08:15)
[2017-05-30] MEDS ORDERED: BARIUM SULFATE 340 GM SUSPENSION. PO ONE (08:15)
[2017-05-30] MEDS ORDERED: METR500T8 PO (08:29)
--- NOTE | 2017-05-30 08:57 | PDOC ---
PULMONARY PROGRESS NOTES Subjective no soa Vitals Vital Signs Date Time Temp Pulse Resp B/P (MAP) Pulse Ox O2 Delivery O2 Flow Rate FiO2 05/30/17 08:11 Room Air 05/29/17 20:24 60 145/64 05/29/17 19:00 97.7 24 99 97.7 General: Alert, No acute distress Lungs: Clear Cardiovascular: S1 Abdomen: Soft Neuro Exam: Alert Extremities: No Edema Skin: Warm Labs Laboratory Tests Test 05/28/17 18:40 05/29/17 03:34 05/29/17 09:35 05/30/17 04:50 White Blood Count 8.4 x10^3/uL (4.0-11.0) 7.1 x10^3/uL (4.0-11.0) Red Blood Count 3.95 x10^6/uL (4.30-5.70) 3.91 x10^6/uL (4.30-5.70) Hemoglobin 12.9 g/dL (13.0-17.5) 12.9 g/dL (13.0-17.5) Hematocrit 37.7 % (39.0-53.0) 36.3 % (39.0-53.0) Mean Corpuscular Volume 95 fL (79-100) 93 fL (79-100) Mean Corpuscular Hemoglobin 33 pg (25-35) 33 pg (25-35) Mean Corpuscular Hemoglobin Concent 34 g/dL (31-37) 36 g/dL (31-37) Red Cell Distribution Width 14.8 % (11.5-14.5) 14.6 % (11.5-14.5) Platelet Count 316 x10^3/uL (140-400) 294 x10^3/uL (140-400) Neutrophils (%) (Auto) 74 % (31-73) 76 % (31-73) Lymphocytes (%) (Auto) 12 % (24-48) 12 % (24-48) Monocytes (%) (Auto) 9 % (0-9) 9 % (0-9) Eosinophils (%) (Auto) 3 % (0-3) 3 % (0-3) Basophils (%) (Auto) 1 % (0-3) 1 % (0-3) Neutrophils # (Auto) 6.2 x10^3uL (1.8-7.7) 5.4 x10^3uL (1.8-7.7) Lymphocytes # (Auto) 1.0 x10^3/uL (1.0-4.8) 0.8 x10^3/uL (1.0-4.8) Monocytes # (Auto) 0.8 x10^3/uL (0.0-1.1) 0.6 x10^3/uL (0.0-1.1) Eosinophils # (Auto) 0.3 x10^3/uL (0.0-0.7) 0.2 x10^3/uL (0.0-0.7) Basophils # (Auto) 0.1 x10^3/uL (0.0-0.2) 0.1 x10^3/uL (0.0-0.2) Prothrombin Time 12.8 SEC (11.7-14.0) Prothromb Time International Ratio 1.0 (0.8-1.1) Activated Partial Thromboplast Time 28 SEC (24-38) Sodium Level 141 mmol/L (136-145) 143 mmol/L (136-145) 144 mmol/L (136-145) Potassium Level 3.9 mmol/L (3.5-5.1) 3.9 mmol/L (3.5-5.1) 3.7 mmol/L (3.5-5.1) Chloride Level 103 mmol/L (98-107) 105 mmol/L (98-107) 106 mmol/L (98-107) Carbon Dioxide Level 33 mmol/L (21-32) 31 mmol/L (21-32) 31 mmol/L (21-32) Anion Gap 5 (6-14) 7 (6-14) 7 (6-14) Blood Urea Nitrogen 25 mg/dL (8-26) 23 mg/dL (8-26) 30 mg/dL (8-26) Creatinine 2.1 mg/dL (0.7-1.3) 1.9 mg/dL (0.7-1.3) 2.4 mg/dL (0.7-1.3) Estimated GFR (Cockcroft-Gault) 30.0 33.6 25.7 BUN/Creatinine Ratio 12 (6-20) Glucose Level 101 mg/dL (70-99) 103 mg/dL (70-99) 94 mg/dL (70-99) Calcium Level 12.1 mg/dL (8.5-10.1) 11.7 mg/dL (8.5-10.1) 10.8 mg/dL (8.5-10.1) Magnesium Level 2.1 mg/dL (1.8-2.4) Total Bilirubin 0.6 mg/dL (0.2-1.0) Aspartate Amino Transf (AST/SGOT) 29 U/L (15-37) Alanine Aminotransferase (ALT/SGPT) 24 U/L (16-63) Alkaline Phosphatase 90 U/L (46-116) Troponin I Quantitative < 0.017 ng/mL (0.000-0.055) < 0.017 ng/mL (0.000-0.055) < 0.017 ng/mL (0.000-0.055) KO-[id number]-Type Natriuretic Peptide 2300 pg/mL (0-449) Total Protein 7.8 g/dL (6.4-8.2) Albumin 3.3 g/dL (3.4-5.0) Albumin/Globulin Ratio 0.7 (1.0-1.7) Laboratory Tests Test 05/29/17 09:35 05/30/17 04:50 Troponin I Quantitative < 0.017 ng/mL (0.000-0.055) Sodium Level 144 mmol/L (136-145) Potassium Level 3.7 mmol/L (3.5-5.1) Chloride Level 106 mmol/L (98-107) Carbon Dioxide Level 31 mmol/L (21-32) Anion Gap 7 (6-14) Blood Urea Nitrogen 30 mg/dL (8-26) Creatinine 2.4 mg/dL (0.7-1.3) Estimated GFR (Cockcroft-Gault) 25.7 Glucose Level 94 mg/dL (70-99) Calcium Level 10.8 mg/dL (8.5-10.1) Medications Active Scripts Medications Dose Route/Sig Max Daily Dose Days Date Category Mirtazapine 15 Mg Tablet 0.5 Tab PO QHS 05/29/17 Reported Flomax (Tamsulosin Hcl) 0.4 Mg Cap.er.24h 0.4 Mg PO DAILY 30 9/18/17 Rx Amlodipine Besylate 10 Mg Tablet 10 Mg PO 05/11/17 Reported Lorazepam 1 Mg Tablet 2 Mg PO HS PRN 05/11/17 Reported Atenolol 50 Mg Tablet 50 Mg PO BID 05/11/17 Reported Impression . 1. Progressive dyspnea, suspect combination of deconditioning and ?mild underlying chronic obstructive pulmonary disease. 2. Dysphagia. 3. Hypercalcemia. 4. Acute kidney injury on top of chronic kidney injury with chronic kidney disease. 5. Acute congestive heart failure. 6. Chronic anemia. Plan . 1. The patient ruled out for PE and DVT with V/Q scan and venous Dopplers, 2. Suspect some of his symptoms are related to chronic reflux, possible mild clinical aspiration. 3. Hypercalcemia and renal failure, being worked up per Nephrology. 4. Follow cardiology input. 5. PT and OT evaluation. Speech eval 6. transfer to floor d/w KEVON COLBY MD May 30, 2017 08:57
--- NOTE | 2017-05-30 09:33 | PDOC ---
PROGRESS NOTES Chief Complaint Chief Complaint Assessment/Plan 1. CHFmild diastolic 2. HYpercalcemia was on exogenous supplementations 3. ONELIA on CKD, prerenal? 4. REecnt lap appy - 2 weeks ago 5. Geriatric, high fall risk 6. ANemia likely of CKD 7. Dysphagia History of Present Illness History of Present Illness NO complaints Pulmo concerned on possible aspiration For esophagogram and AUTOMOBILE TESTER eval PT does admit he sometimes chokes or has dysphagia PLAn: Esophagogram NPO till AUTOMOBILE TESTER eval DNR PT.oT MAy transfer out of ICU to non monitored bed Vitals Vitals Vital Signs Date Time Temp Pulse Resp B/P (MAP) Pulse Ox O2 Delivery O2 Flow Rate FiO2 05/30/17 08:11 Room Air 05/30/17 08:00 98.3 62 18 159/77 (104) 99 98.3 Physical Exam General: Alert, Oriented X3, Cooperative, No acute distress Heart: Regular rate Lungs: Clear Abdomen: Normal bowel sounds, No tenderness Extremities: No clubbing Skin: No rashes Labs LABS Laboratory Tests Test 05/29/17 09:35 05/30/17 04:50 Troponin I Quantitative < 0.017 ng/mL (0.000-0.055) Sodium Level 144 mmol/L (136-145) Potassium Level 3.7 mmol/L (3.5-5.1) Chloride Level 106 mmol/L (98-107) Carbon Dioxide Level 31 mmol/L (21-32) Anion Gap 7 (6-14) Blood Urea Nitrogen 30 mg/dL (8-26) Creatinine 2.4 mg/dL (0.7-1.3) Estimated GFR (Cockcroft-Gault) 25.7 Glucose Level 94 mg/dL (70-99) Calcium Level 10.8 mg/dL (8.5-10.1) Review of Systems Review of Systems dysphagia, weak not worse Assessment and Plan Assessmemt and Plan Problems Medical Problems: (1) Acute exacerbation of congestive heart failure Status: Acute (2) Acute kidney injury superimposed on chronic kidney disease Status: Acute (3) Dyspnea Status: Acute (4) Hypercalcemia Status: Acute Problems: Comment Review of Relevant I have reviewed the following items william (where applicable) has been applied. Labs Laboratory Tests Test 05/28/17 18:40 05/29/17 03:34 05/29/17 09:35 05/30/17 04:50 White Blood Count 8.4 x10^3/uL (4.0-11.0) 7.1 x10^3/uL (4.0-11.0) Red Blood Count 3.95 x10^6/uL (4.30-5.70) 3.91 x10^6/uL (4.30-5.70) Hemoglobin 12.9 g/dL (13.0-17.5) 12.9 g/dL (13.0-17.5) Hematocrit 37.7 % (39.0-53.0) 36.3 % (39.0-53.0) Mean Corpuscular Volume 95 fL (79-100) 93 fL (79-100) Mean Corpuscular Hemoglobin 33 pg (25-35) 33 pg (25-35) Mean Corpuscular Hemoglobin Concent 34 g/dL (31-37) 36 g/dL (31-37) Red Cell Distribution Width 14.8 % (11.5-14.5) 14.6 % (11.5-14.5) Platelet Count 316 x10^3/uL (140-400) 294 x10^3/uL (140-400) Neutrophils (%) (Auto) 74 % (31-73) 76 % (31-73) Lymphocytes (%) (Auto) 12 % (24-48) 12 % (24-48) Monocytes (%) (Auto) 9 % (0-9) 9 % (0-9) Eosinophils (%) (Auto) 3 % (0-3) 3 % (0-3) Basophils (%) (Auto) 1 % (0-3) 1 % (0-3) Neutrophils # (Auto) 6.2 x10^3uL (1.8-7.7) 5.4 x10^3uL (1.8-7.7) Lymphocytes # (Auto) 1.0 x10^3/uL (1.0-4.8) 0.8 x10^3/uL (1.0-4.8) Monocytes # (Auto) 0.8 x10^3/uL (0.0-1.1) 0.6 x10^3/uL (0.0-1.1) Eosinophils # (Auto) 0.3 x10^3/uL (0.0-0.7) 0.2 x10^3/uL (0.0-0.7) Basophils # (Auto) 0.1 x10^3/uL (0.0-0.2) 0.1 x10^3/uL (0.0-0.2) Prothrombin Time 12.8 SEC (11.7-14.0) Prothromb Time International Ratio 1.0 (0.8-1.1) Activated Partial Thromboplast Time 28 SEC (24-38) Sodium Level 141 mmol/L (136-145) 143 mmol/L (136-145) 144 mmol/L (136-145) Potassium Level 3.9 mmol/L (3.5-5.1) 3.9 mmol/L (3.5-5.1) 3.7 mmol/L (3.5-5.1) Chloride Level 103 mmol/L (98-107) 105 mmol/L (98-107) 106 mmol/L (98-107) Carbon Dioxide Level 33 mmol/L (21-32) 31 mmol/L (21-32) 31 mmol/L (21-32) Anion Gap 5 (6-14) 7 (6-14) 7 (6-14) Blood Urea Nitrogen 25 mg/dL (8-26) 23 mg/dL (8-26) 30 mg/dL (8-26) Creatinine 2.1 mg/dL (0.7-1.3) 1.9 mg/dL (0.7-1.3) 2.4 mg/dL (0.7-1.3) Estimated GFR (Cockcroft-Gault) 30.0 33.6 25.7 BUN/Creatinine Ratio 12 (6-20) Glucose Level 101 mg/dL (70-99) 103 mg/dL (70-99) 94 mg/dL (70-99) Calcium Level 12.1 mg/dL (8.5-10.1) 11.7 mg/dL (8.5-10.1) 10.8 mg/dL (8.5-10.1) Magnesium Level 2.1 mg/dL (1.8-2.4) Total Bilirubin 0.6 mg/dL (0.2-1.0) Aspartate Amino Transf (AST/SGOT) 29 U/L (15-37) Alanine Aminotransferase (ALT/SGPT) 24 U/L (16-63) Alkaline Phosphatase 90 U/L (46-116) Troponin I Quantitative < 0.017 ng/mL (0.000-0.055) < 0.017 ng/mL (0.000-0.055) < 0.017 ng/mL (0.000-0.055) LU-Vil-V-Type Natriuretic Peptide 2300 pg/mL (0-449) Total Protein 7.8 g/dL (6.4-8.2) Albumin 3.3 g/dL (3.4-5.0) Albumin/Globulin Ratio 0.7 (1.0-1.7) Laboratory Tests Test 05/29/17 09:35 05/30/17 04:50 Troponin I Quantitative < 0.017 ng/mL (0.000-0.055) Sodium Level 144 mmol/L (136-145) Potassium Level 3.7 mmol/L (3.5-5.1) Chloride Level 106 mmol/L (98-107) Carbon Dioxide Level 31 mmol/L (21-32) Anion Gap 7 (6-14) Blood Urea Nitrogen 30 mg/dL (8-26) Creatinine 2.4 mg/dL (0.7-1.3) Estimated GFR (Cockcroft-Gault) 25.7 Glucose Level 94 mg/dL (70-99) Calcium Level 10.8 mg/dL (8.5-10.1) Medications Current Medications Vancomycin HCl (Vanco Per Pharmacy) 1 each PRN DAILY PRN MC SEE COMMENTS; Start 05/28/17 at 19:15; Status UNV Piperacillin Sod/ Tazobactam Sod (Zosyn Per Pharmacy) 1 each PRN DAILY PRN MC SEE COMMENTS; Start 05/28/17 at 19:15; Status UNV Levofloxacin/ Dextrose (Levaquin Per Pharmacy) 1 each PRN DAILY PRN MC SEE COMMENTS; Start 05/28/17 at 19:15; Status UNV Lorazepam (Ativan) 0.5 mg 1X ONCE IV Last administered on 05/28/17t 19:21; Start 05/28/17 at 19:15; Stop 05/28/17 at 19:16; Status DC Ondansetron HCl (Zofran) 4 mg PRN Q8HRS PRN IV NAUSEA/VOMITING; Start 05/28/17 at 21:45; Stop 05/29/17 at 09:08; Status DC Acetaminophen (Tylenol) 650 mg PRN Q4HRS PRN PO FEVER; Start 05/28/17 at 21:45 ; Stop 05/29/17 at 21:44; Status DC Furosemide (Lasix) 20 mg 1X ONCE IVP Last administered on 05/28/17 22:00; Start 05/28/17 at 22:00; Stop 05/28/17 at 22:01; Status DC Sodium Chloride 500 ml @ 500 mls/hr 1X ONCE IV Last administered on 21:45; Start 05/28/17 at 21:45; Stop 05/28/17 at 22:44; Status DC Lorazepam (Ativan) 0.5 mg PRN Q4HRS PRN IV ANXIETY / AGITATION Last administered on 05/29/17 06:44; Start 05/29/17 at 06:45 Acetaminophen/ Hydrocodone Bitart (Lortab 5/325) 1 tab PRN Q6HRS PRN PO MILD - MODERATE PAIN Last administered on 05/29/17 06:44; Start 05/29/17 at 06:45 Ondansetron HCl (Zofran) 4 mg PRN Q6HRS PRN IV NAUSEA/VOMITING; Start 05/29/17 at 09:15; Stop 05/30/17 at 09:14; Status DC Albuterol Sulfate (Ventolin Neb Soln) 2.5 mg PRN Q4HRS PRN NEB SHORTNESS OF BREATH; Start 05/29/17 at 09:15 Amlodipine Besylate (Norvasc) 10 mg DAILY PO Last administered on 05/29/17 10: 18; Start 05/29/17 at 10:00 Atenolol (Tenormin) 50 mg DAILY PO Last administered on 05/29/17 10:17; Start 05/29/17 at 10:00; Stop 05/29/17 at 14:16; Status DC Doxepin HCl (SINequan) 10 mg QHS PO ; Start 05/29/17 at 21:00; Stop 05/29/17 at 21:00; Status DC Lorazepam (Ativan) 2 mg PRN QHS PRN PO INSOMNIA Last administered on 05/29/17 20:28; Start 05/29/17 at 09:15 Oxycodone/ Acetaminophen (Percocet 10/325) 1 tab PRN Q4HRS PRN PO SEVERE PAIN; Start 05/29/17 at 09:15 Tamsulosin HCl (Flomax) 0.4 mg DAILY PO Last administered on 05/29/17 10:18; Start 05/29/17 at 10:00 Pantoprazole Sodium (Protonix) 40 mg DAILYAC PO Last administered on 05/29/17 10:18; Start 05/29/17 at 11:30 Mirtazapine (Remeron) 15 mg QHS PO Last administered on 05/29/17 20:23; Start 05/29/17 at 21:00 Atenolol (Tenormin) 50 mg BID PO Last administered on 05/29/17 20:24; Start 05/29/17 at 21:00 Barium Sulfate (Liquid E-Z Paque) 355 ml 1X ONCE PO Last administered on 09:29; Start 05/30/17 at 08:15; Stop 05/30/17 at 08:16; Status DC Barium Sulfate (E-Z-Hd) 340 gm 1X ONCE PO ; Start 05/30/17 at 08:15; Stop 05/30 at 08:16; Status DC Simethicone/ Sodium Bicarb/ Citric Ac (E-Z-Gas) 1 packet 1X ONCE PO ; Start at 08:15; Stop 05/30/17 at 08:16; Status DC Active Scripts Active Flomax (Tamsulosin Hcl) 0.4 Mg Cap.er.24h 0.4 Mg PO DAILY 30 Days Reported Metronidazole 500 Mg Tablet 1 Tab PO TID 7 Days Mirtazapine 15 Mg Tablet 0.5 Tab PO QHS Amlodipine Besylate 10 Mg Tablet 10 Mg PO Lorazepam 1 Mg Tablet 2 Mg PO HS PRN Atenolol 50 Mg Tablet 50 Mg PO BID Vitals/I & O Vital Sign - Last 24 Hours 05/29/17 05/29/17 05/29/17 05/29/17 10 10:18 11:00 14:19 Temp 98.3 98.3 Pulse 67 67 72 Resp 18 B/P (MAP) 155/80 155/80 147/65 (92) Pulse Ox 100 97 O2 Delivery Room Air Room Air 05/29/17 05/29/17 05/29/17 05/29/17 15:00 19:00 20:00 20:24 Temp 98.5 97.7 98.5 97.7 Pulse 72 64 60 Resp 18 24 B/P (MAP) 169/79 (109) 145/64 (91) 145/64 Pulse Ox 100 99 O2 Delivery Room Air Room Air Room Air 05/30/17 05/30/17 08:00 08:11 Temp 98.3 98.3 Pulse 62 Resp 18 B/P (MAP) 159/77 (104) Pulse Ox 99 O2 Delivery Room Air Room Air Intake and Output 05/30/17 05/30/17 05/31/17 15:00 23:00 07:00 Output Total 110 ml Balance -110 ml GERMAN KNIGHT MD May 30, 2017 09:33
[2017-05-30] MEDS: amLODIPine BESYLATE 10 MG TABLET PO SCH (09:48)
[2017-05-30] MEDS: PANTOPRAZOLE 40 MG TABLET.DR. PO SCH (09:49)
[2017-05-30] MEDS: TAMSULOSIN 0.4 MG CAP.ER.24H. PO SCH (09:49)
[2017-05-30] MEDS: ATENOLOL 50 MG TABLET. PO SCH (09:49)
--- NOTE | 2017-05-30 10:06 | PDOC3 ---
Discharge Summary Visit Information Date of Admission: May 28, 2017 Date of Discharge: May 30, 2017 Admitting Diagnosis Comment: 1. CHFmild diastolic 2. HYpercalcemia was on exogenous supplementations 3. ONELIA on CKD, prerenal? 4. REecnt lap appy - 2 weeks ago 5. Geriatric, high fall risk 6. ANemia likely of CKD 7. Dysphagia Final Diagnosis Problems Medical Problems: (1) Acute exacerbation of congestive heart failure Status: Acute (2) Acute kidney injury superimposed on chronic kidney disease Status: Acute (3) Dyspnea Status: Acute (4) Hypercalcemia Status: Acute Brief Hospital Course Allergies Allergies Coded Allergies Type Severity Reaction Last Updated Verified lisinopril Allergy Intermediate 05/11/17 Yes simvastatin Allergy Intermediate 05/11/17 Yes tramadol Allergy Intermediate 05/11/17 Yes hydrochlorothiazide Adverse Reaction Intermediate 05/11/17 Yes zolpidem Adverse Reaction Intermediate 09/24/13 Yes Vital Signs Vital Signs Date Time Temp Pulse Resp B/P (MAP) Pulse Ox O2 Delivery O2 Flow Rate FiO2 05/30/17 09:49 62 159/77 05/30/17 09:49 18 99 Room Air 05/30/17 08:00 98.3 98.3 Lab Results Laboratory Tests Test 05/28/17 18:40 05/29/17 03:34 05/29/17 09:35 05/30/17 04:50 White Blood Count 8.4 x10^3/uL (4.0-11.0) 7.1 x10^3/uL (4.0-11.0) Red Blood Count 3.95 x10^6/uL (4.30-5.70) 3.91 x10^6/uL (4.30-5.70) Hemoglobin 12.9 g/dL (13.0-17.5) 12.9 g/dL (13.0-17.5) Hematocrit 37.7 % (39.0-53.0) 36.3 % (39.0-53.0) Mean Corpuscular Volume 95 fL (79-100) 93 fL (79-100) Mean Corpuscular Hemoglobin 33 pg (25-35) 33 pg (25-35) Mean Corpuscular Hemoglobin Concent 34 g/dL (31-37) 36 g/dL (31-37) Red Cell Distribution Width 14.8 % (11.5-14.5) 14.6 % (11.5-14.5) Platelet Count 316 x10^3/uL (140-400) 294 x10^3/uL (140-400) Neutrophils (%) (Auto) 74 % (31-73) 76 % (31-73) Lymphocytes (%) (Auto) 12 % (24-48) 12 % (24-48) Monocytes (%) (Auto) 9 % (0-9) 9 % (0-9) Eosinophils (%) (Auto) 3 % (0-3) 3 % (0-3) Basophils (%) (Auto) 1 % (0-3) 1 % (0-3) Neutrophils # (Auto) 6.2 x10^3uL (1.8-7.7) 5.4 x10^3uL (1.8-7.7) Lymphocytes # (Auto) 1.0 x10^3/uL (1.0-4.8) 0.8 x10^3/uL (1.0-4.8) Monocytes # (Auto) 0.8 x10^3/uL (0.0-1.1) 0.6 x10^3/uL (0.0-1.1) Eosinophils # (Auto) 0.3 x10^3/uL (0.0-0.7) 0.2 x10^3/uL (0.0-0.7) Basophils # (Auto) 0.1 x10^3/uL (0.0-0.2) 0.1 x10^3/uL (0.0-0.2) Prothrombin Time 12.8 SEC (11.7-14.0) Prothromb Time International Ratio 1.0 (0.8-1.1) Activated Partial Thromboplast Time 28 SEC (24-38) Sodium Level 141 mmol/L (136-145) 143 mmol/L (136-145) 144 mmol/L (136-145) Potassium Level 3.9 mmol/L (3.5-5.1) 3.9 mmol/L (3.5-5.1) 3.7 mmol/L (3.5-5.1) Chloride Level 103 mmol/L (98-107) 105 mmol/L (98-107) 106 mmol/L (98-107) Carbon Dioxide Level 33 mmol/L (21-32) 31 mmol/L (21-32) 31 mmol/L (21-32) Anion Gap 5 (6-14) 7 (6-14) 7 (6-14) Blood Urea Nitrogen 25 mg/dL (8-26) 23 mg/dL (8-26) 30 mg/dL (8-26) Creatinine 2.1 mg/dL (0.7-1.3) 1.9 mg/dL (0.7-1.3) 2.4 mg/dL (0.7-1.3) Estimated GFR (Cockcroft-Gault) 30.0 33.6 25.7 BUN/Creatinine Ratio 12 (6-20) Glucose Level 101 mg/dL (70-99) 103 mg/dL (70-99) 94 mg/dL (70-99) Calcium Level 12.1 mg/dL (8.5-10.1) 11.7 mg/dL (8.5-10.1) 10.8 mg/dL (8.5-10.1) Magnesium Level 2.1 mg/dL (1.8-2.4) Total Bilirubin 0.6 mg/dL (0.2-1.0) Aspartate Amino Transf (AST/SGOT) 29 U/L (15-37) Alanine Aminotransferase (ALT/SGPT) 24 U/L (16-63) Alkaline Phosphatase 90 U/L (46-116) Troponin I Quantitative < 0.017 ng/mL (0.000-0.055) < 0.017 ng/mL (0.000-0.055) < 0.017 ng/mL (0.000-0.055) WR-Tuw-S-Type Natriuretic Peptide 2300 pg/mL (0-449) Total Protein 7.8 g/dL (6.4-8.2) Albumin 3.3 g/dL (3.4-5.0) Albumin/Globulin Ratio 0.7 (1.0-1.7) Laboratory Tests Test 05/30/17 04:50 Sodium Level 144 mmol/L (136-145) Potassium Level 3.7 mmol/L (3.5-5.1) Chloride Level 106 mmol/L (98-107) Carbon Dioxide Level 31 mmol/L (21-32) Anion Gap 7 (6-14) Blood Urea Nitrogen 30 mg/dL (8-26) Creatinine 2.4 mg/dL (0.7-1.3) Estimated GFR (Cockcroft-Gault) 25.7 Glucose Level 94 mg/dL (70-99) Calcium Level 10.8 mg/dL (8.5-10.1) Brief Hospital Course Mr. Desouza is a 87 old male, DNR DNI, admitted for some mild diastolic heart failure as per cards assessment, had some soa, mild BNP elevation And mild CXR findings, NO CP. Got diuresed,. Feels better, SOme dysphagia issues, COuld not wait for esophagogram or CREMATORY OPERATOR eval - will not agree to SNU (PT recommended) SOn involved in care,. Will go home with current HH c./ o [facility] and no change in cardiac meds per cards. NO lasix as propensity to dehydrate in this elderly DNR Seen and examined, 2 notes Discharge Information Condition at Discharge: Improved, Stable Disposition/Orders: D/C to Home w/ HH Scheduled Atenolol (Atenolol), 50 MG PO BID, (Reported) Metronidazole (Metronidazole), 1 TAB PO TID, (Reported) Mirtazapine (Mirtazapine), 0.5 TAB PO QHS, (Reported) Tamsulosin Hcl (Flomax), 0.4 MG PO DAILY Scheduled PRN Lorazepam (Lorazepam), 2 MG PO HS PRN for INSOMNIA, (Reported) Miscellaneous Medications Amlodipine Besylate (Amlodipine Besylate), 10 MG PO, (Reported) GERMAN KNIGHT MD May 30, 2017 10:06
[2017-05-30 11:00] VITALS: BP 136/62
--- NOTE | 2017-05-30 11:29 | RAD ---
Esophagram Indication: Dysphagia Technique: Esophagram with thin barium with 1.5 minutes of fluoroscopy time. Patient was unable to stand. Hence exam was performed in semierect Position. Comparison: None Findings: Slightly limited study due to suboptimal positioning due to patient's back pain. No obstructing esophageal lesion. Patulous esophagus. Small sliding hiatal hernia. No abnormality seen at the gastroesophageal junction. Impression: Slightly limited study due to suboptimal positioning due to patient's back pain. No obstructing esophageal lesion. Video swallow study by speech pathology recommended for further evaluation.
[2017-05-30] MEDS ORDERED: BARIUM SULFATE 40% (APPLE) 148 GM PWD. PO ONE (12:15)
[2017-05-30] MEDS ORDERED: metroNIDAZOLE 500 MG TABLET PO SCH (14:00)
--- NOTE | 2017-05-30 14:29 | RAD ---
Video swallow study Indication: Dysphagia Technique: Video swallow study with 2.5 minutes of fluoroscopy time. Comparison: None Findings: Penetration and aspiration seen with thin liquids. Significantly delayed bolus formation and transit time through the oropharynx. Residual seen in the vallecula and piriform sinuses. Impression: As above. Please see note by speech pathology in patient's chart for full details.
[2017-05-31 15:34] LABS: PTH INTACT 13 pg/mL (15-65)
== END 2017-05-30 17:30 | disposition home health service (06) | DRG 682 ==
LOC: ER 18:28 → 1 WEST ICU 20:28
PROVIDERS: ADMIT Internal Medicine; ATTEND Internal Medicine
DX: N17.9 Acute kidney failure, unspecified (principal); I50.33 Acute on chronic diastolic (congestive) heart failure; G62.9 Polyneuropathy, unspecified; E83.52 Hypercalcemia; R13.10 Dysphagia, unspecified; D63.8 Anemia in other chronic diseases classified elsewhere; I13.0 Hypertensive heart and chronic kidney disease with heart failure and stage 1 through stage 4 chronic kidney disease, or unspecified chronic kidney disease; I45.10 Unspecified right bundle-branch block; Z66 Do not resuscitate; F41.9 Anxiety disorder, unspecified; G47.00 Insomnia, unspecified; K21.9 Gastro-esophageal reflux disease without esophagitis; N18.3 Chronic kidney disease, stage 3 (moderate); N40.0 Benign prostatic hyperplasia without lower urinary tract symptoms; G89.29 Other chronic pain; J30.9 Allergic rhinitis, unspecified; K52.9 Noninfective gastroenteritis and colitis, unspecified; M19.90 Unspecified osteoarthritis, unspecified site; R33.9 Retention of urine, unspecified; Z90.49 Acquired absence of other specified parts of digestive tract; Z91.81 History of falling; M54.5 Low back pain; Z88.8 Allergy status to other drugs, medicaments and biological substances; Z87.891 Personal history of nicotine dependence
CPT/HCPCS: 36415; 71010; 74220; 74230; 78582; 80048; 80053; 83735; 83880; 83970; 84484; 85025; 85610; 85730; 87641; 93005; 93971; 94250; 94760; 96361; 96374; 96375; A9540; A9558; J2060; J7040; 92610; 92611; 97116; 99285-25